=== PATIENT | male | born 1955 | race Caucasian/White ===

== ENCOUNTER 2019-11-11 12:49 | Observation (INO) | payer MEDICARE, SELFPAY ==
[2019-11-11 13:57] VITALS: BP 139/66; PULSE 68; RESP 18; TEMP 36.7; O2SAT 99
--- NOTE | 2019-11-11 14:07 | ADMGEN ---
This patient, Kapil Mckeon, was admitted to 2nd Floor Room 204-1. Patient/family oriented to hospital policies and general routines including ID bracelet, bed and alarms, visiting hours, pain management, procedures, bathroom and other care routines, personal items, smoking policy, room service/diet, and visiting hours. Valuables list has been completed. Information on how to activate the Rapid Response Team has been discussed. Patient/Family are encouraged to report perceived risks to care and to ask questions if they do not understand what they are told or what they should do. PATIENT PRESENT WITH DVT TO LEFT UPPER LEG CONFIRMED ON ULS AT [facility]. SENT HIM ON ELIQUIS PO, BUT PATIENT WENT TO GET IT FILLED AND CAN'T AFFORD IT. PATIENT WENT TO DR. PHILLIP VAZ MD AND WAS SENT OVER FOR ADMISSION TO START ON WARFARIN/LOVENOX VS HEPARIN REGIME SEE ORDERS. UPPER THIGH MEASURED AT 60 CM WARM TO TOUCH AND SLIGHT FIRM TO TOUCH FROM OF RIGHT UPPER THIGH. REPORT NO PAIN AT REST. SORE IF GOES TO MOVE IT. HAS NOT BEEN FITTED FOR PROTHESIS YET. INCISION TO AMPUTATION (DONE 2018) ASYSTOMATIC OF S/SX OF INFECTION. INTIAL ASSESSMENT AND HEALTH HISTORY COMPLETED.
[2019-11-11 14:08] LABS: Basophils Absolute Auto 0.03 K/mm3 (0.00-0.10); Basophils Percent Auto 0.5 % (0.0-1.0); Eosinophils Absolute Auto 0.12 K/mm3 (0.02-0.50); Hematocrit 37.7 % (40.0-54.0); Hemoglobin 11.8 g/dL (14.0-18.0); Immature Granulocyte Absolute 0.02 K/mm3 (0.00-0.00); Immature Granulocyte Percent A 0.3 % (0.0-0.0); Lymphocytes Absolute Auto 0.72 K/mm3 (1.10-4.50); Lymphocytes Percent Auto 11.7 % (18.0-42.0); Mean Corpuscular HGB Conc 31.3 g/dL (32.0-36.0); Mean Corpuscular Hemoglobin 25.8 pg (27.0-31.0); Mean Corpuscular Volume 82.5 fL (78.0-102.0); Mean Platelet Volume 9.5 fl (8.7-11.0); Monocytes Absolute Auto 0.54 K/mm3 (0.10-0.90); Monocytes Percent Auto 8.8 % (2.0-11.0); Neutrophils Absolute Auto 4.7 K/mm3 (1.7-7.2); Neutrophils Percent Auto 76.7 % (50.0-70.0); Nucleated Red Blood Cells Absolute Auto 0.02 K/mm3 (0.00-0.00); Nucleated Red Blood Cells Perc 0.3 % (0-0.0); Platelet Count Result 166 K/mm3 (150-420); Red Blood Count 4.57 M/mm3 (4.70-6.10); Red Cell Distribution Width 15.7 % (11.6-14.4); White Blood Count 6.1 K/mm3 (4.8-10.8)
--- NOTE | 2019-11-11 14:18 | PM.IMHP ---
H&P: HPI History of Present Illness Chief complaint: Blood clots <Afsaneh Phillip, [employer] PROJECT MANAGER - Last Filed: 11/11/19 16:09> Narrative: Kapil Mckeon is a 64 year old male admitted for anticoagulation therapy due to multiple DVTs status post amputation reconstruction or revision surgery at [facility] in the last 2 months. Kapil was recently discharged from [facility] after having been there for more than 40 days getting therapy status post revision of his amputation. when the patient was discharged from [facility], he was complaining of soreness tenderness to his right thigh as well as a feeling of fullness and tightness to his right thigh. Dr. Hammond is his primary care doctor. When Kapil had a venous ultrasound done at [facility] ED yesterday with a right swollen upper leg, they found multiple DVTs and he was prescribed Eliquis at ED discharge. The Doppler confirmed acute thrombosis of the right common femoral and superficial femoral veins as well as superficial thrombophlebitis of the greater saphenous vein. Upon checking at the pharmacy he discovered that Eliquis was 100s of dollars and he could not afford it. So he contacted Dr. Hammond, who stated that he would have to be admitted for a bridge of anticoagulation therapy to Coumadin dosing with a therapeutic INR. Kapil is a direct admit today. He has been started on Lovenox as a bridge to Coumadin anticoagulation with a goal of 2.0-3.0 INR. Orders have been placed to renal dose the Lovenox, Has he has known chronic renal failure stage III. He also has history of severe diabetes, noncompliance, obesity, and difficult medication management due to limited income. His stump revision is healing well to his right leg. His surgeon is Dr. Davila. Kapil has an IVC filter that has been in place for approximately 6 years and remains in place per patient report. His current labs are stable, INR is 1.1, H&H is 11.8 and 37.7, platelets 166, creatinine 2.11, liver function tests are within normal levels. His vital signs are stable, he is on room air with 99% saturation. He is comfortable and resting in his room. His last A1c is 9.6 from June 2019. He is on glipizide at home and has a history of diarrhea with metformin. He has been started on low-dose sliding scale insulin with a.c. HS glucose checks, as well as continued his glipizide. <Afsaneh Phillip NP - Last Filed: 11/11/19 16:09> [facility] Past Medical History Medical History: Medical History (Updated 11/11/19 @ 16:04 by Afsaneh Phillip NP) Acute renal failure Acute renal failure Amputation of right lower extremity below knee Amputation stump complication Amputation stump infection Below knee amputation Chronic renal failure, stage 3 (moderate) History of deviated nasal septum Hypertension Nephropathy Noncompliance Osteomyelitis Type 2 diabetes mellitus <Afsaneh Phillip NP - Last Filed: 11/11/19 16:09> Surgical History Surgical History: Surgical History (Updated 11/11/19 @ 15:35 by Afsaneh Phillip NP) H/O sinus surgery History of tonsillectomy and adenoidectomy S/P debridement Status post left foot surgery Status post right foot surgery <Afsaneh Phillip NP - Last Filed: 11/11/19 16:09> Family History Family History: Family History (Updated 11/11/19 @ 15:41 by Afsaneh Phillip NP) Mother Heart & renal disease, hypertensive, with heart failure Father No problems noted. <Afsaneh Phillip NP - Last Filed: 11/11/19 16:09> Social History Social History: Social History Smoking status: Never smoker Second hand tobacco smoke exposure: No Alcohol intake: never Substance use: never Substance use type: does not use Gender identity (if verbalized by the patient): Male Spiritual care concerns: No Agree to blood products: Yes <Afsaneh Phillip NP - Last Filed
[2019-11-11 14:21] LABS: Alanine Aminotransferase 20 U/L (16-63); Albumin Level 3.5 g/dL (3.4-5.0); Alkaline Phosphatase 99 U/L (46-116); Anion Gap 15.2 mmol/L (7-16); Aspartate Amino Transferase 21 U/L (15-37); Bilirubin,Total 0.8 mg/dL (0.00-1.00); Blood Urea Nitrogen 23 mg/dL (7-18); Calcium 8.6 mg/dL (8.5-10.1); Carbon Dioxide 27 mmol/L (21-32); Chloride 101 mmol/L (98-108); Estimated CRCL calculation 64 ml/min; Estimated Glomerular Filt Rate 32; Glucose 227 mg/dL (70-99); Osmolality Calculated 298 mOsm/kg (285-295); Potassium 4.2 mmol/L (3.5-5.1); Sodium 139 mmol/L (136-145); Total Protein 7.2 g/dL (6.4-8.2)
[2019-11-11 14:23] LABS: INR 1.1; Prothrombin Time 11.1 Seconds (9.64-11.0)
--- NOTE | 2019-11-11 16:01 | PC.NURSE ---
SN notified [facility] of lab results for Lovenox dosing @ 15:32.
[2019-11-11] MEDS: ENOXAPARIN 40 MG/0.4 ML SYRINGE SUB-Q (16:57)
[2019-11-11] MEDS: WARFARIN (*PBKC) 5 MG TABLET PO (16:58)
[2019-11-11] MEDS: carvediloL 12.5 MG TABLET PO (16:58)
[2019-11-11 17:07] LABS: Glucose Point of Care 126 (65-105)
--- NOTE | 2019-11-11 17:15 | PM.EVENT ---
Event Note Event Note Event Note: For this patient encounter, I reviewed the CUTTING MACHINE TENDER DECORATIVE or PA documentation, treatment plan, and medical decision making; and I had [id number] time with this patient. I discussed case with Dr. Hammond and the Gisele Sandra N.P. Pt. was examined by me. Right anterior thigh is not swollen or red. I agree with documentation, treatment plan and medical decision making.
--- NOTE | 2019-11-11 20:00 | PC.NURSE ---
Patient sitting in chair watching tv. No complaints of bleeding or bruising and none noted. Denies pain/complaints/needs @ this time. No distress noted. Call light in reach.
--- NOTE | 2019-11-11 21:03 | PC.NURSE ---
Patient still sitting in chair watching tv. Denies s/sx of bleeding/bruising and none noted. Call light in reach.
--- NOTE | 2019-11-11 21:25 | PC.NURSE ---
Patient lying in bed watching tv. Respirations even and unlabored. Patient denies pain/complaints/needs @ this time. No s/sx of bleeding complained of or noted. AUBREE chowdary and SCD applied to E. Blood [id number]. No distress noted. Call light in reach.
[2019-11-11 21:27] LABS: Glucose Point of Care 170 (65-105)
--- NOTE | 2019-11-11 22:05 | PC.NURSE ---
Patient lying in bed watching tv. Denies pain/complaints/needs @ this time. No s/sx of bleeding/bruising. No distress noted. Call light in reach.
--- NOTE | 2019-11-11 23:10 | PC.NURSE ---
Patient appears to be sleeping by the rise and fall of his chest. Respirations even and unlabored. No s/sx of bleeding/bruising noted. No distress noted. Call light in reach.
[2019-11-12] VITALS: BP 118/65; PULSE 72; RESP 16; TEMP 36.4; O2SAT 97
--- NOTE | 2019-11-12 00:05 | PC.NURSE ---
Patient awakened easily for VS. Patient denies pain/complaints/needs @ this time. No s/sx of bleeding/bruising noted. Respirations even and unlabored. No distress noted. Call light in reach.
--- NOTE | 2019-11-12 02:05 | PC.NURSE ---
atient appears to be sleeping by the rise and fall of his chest. Respirations even and unlabored. No s/sx of bleeding/bruising noted. No distress noted. Call light in reach.
[2019-11-12 05:34] LABS: Estimated Glomerular Filt Rate 37
[2019-11-12 05:38] LABS: Estimated CRCL calculation 74 ml/min
[2019-11-12 05:44] LABS: Prothrombin Time 10.8 Seconds (9.64-11.0)
--- NOTE | 2019-11-12 07:30 | PC.NURSE ---
INR 1.0. Lovenox will be given at 0800
[2019-11-12 08:00] VITALS: BP 149/82; PULSE 75; RESP 20; TEMP 36.2; O2SAT 97
--- NOTE | 2019-11-12 08:30 | PC.NURSE ---
Lovenox given. Coumadin will be given this evening.
[2019-11-12 08:46] VITALS: PULSE 75
[2019-11-12] MEDS: carvediloL 12.5 MG TABLET PO (08:46)
[2019-11-12] MEDS: ENOXAPARIN 40 MG/0.4 ML SYRINGE SUB-Q (08:46)
[2019-11-12] MEDS: glipiZIDE 5 MG TABLET 10 MG PO (08:46)
--- NOTE | 2019-11-12 10:30 | PC.NURSE ---
Lovenox given. Coumadin to be given this evening.
[2019-11-12 11:48] LABS: Glucose Point of Care 115 (65-105)
[2019-11-12 11:48] LABS: Glucose Point of Care 175 (65-105)
[2019-11-12 14:19] LABS: Estimated CRCL calculation 71 ml/min; Estimated Glomerular Filt Rate 35
--- NOTE | 2019-11-12 15:06 | PM.DS ---
DS: Diagnosis Admitting Diagnosis Admitting Diagnosis: Unspecified complications of amputation stump Discharge Diagnosis (1) BKA stump complication: Onset Date: 11/10/19 Code(s): T87.9 - Unspecified complications of amputation stump Status: Acute Assessment and Plan: BKA stump does not have any obvious signs and symptoms of infection patient is using knee wheeled walker with that right stump so that does cause daily use/trauma. treating DVT with anticoagulation (2) DVT (deep venous thrombosis): Onset Date: ~11/10/19 Code(s): I82.409 - Acute embolism and thrombosis of unspecified deep veins of unspecified lower extremity Status: Acute Assessment and Plan: stable no obvious signs and symptoms of PE at risk for DVTs due to recent and prolonged immobility after surgery and with BKA continue renal dose Lovenox for 4 days with warfarin and daily INR and follow-up with PCP the earlier part of next week (3) Thrombophlebitis of saphenous vein: Onset Date: ~11/10/19 Code(s): I80.00 - Phlebitis and thrombophlebitis of superficial vessels of unspecified lower extremity Status: Acute Assessment and Plan: stable this day of discharge Treating with renal dose Lovenox and bridging therapy to Coumadin with goal INR 2-3 Treat pain with warm compresses or ice PRN for comfort treat pain with Tylenol elevate PRN WBC is currently 6.1 with no fevers noted. (4) CKD (chronic kidney disease): Onset Date: Unknown Code(s): N18.9 - Chronic kidney disease, unspecified Status: Acute Assessment and Plan: stable known to have CKD stage 3, with periodic episodes of Acute Renal Failure. Creatinine today 1.95 has improved avoid nephrotoxic medications DS: Summary Hospital Course Hospital Course: patient's H&P from 03/11 Kapil Mckeon is a 64 year old male admitted for anticoagulation therapy due to multiple DVTs status post amputation reconstruction or revision surgery at [facility] in the last 2 months. Kapil was [facility] after having been there for more than 40 days getting therapy status post revision of his amputation. when the patient was discharged from [facility], he was complaining of soreness tenderness to his right thigh as well as a feeling of fullness and tightness to his right thigh. Dr. Hammond is his primary care doctor. When Kapil had a venous ultrasound done at [facility] ED yesterday with a right swollen upper leg, they found multiple DVTs and he was prescribed Eliquis at ED discharge. The Doppler confirmed acute thrombosis of the right common femoral and superficial femoral veins as well as superficial thrombophlebitis of the greater saphenous vein. Upon checking at the pharmacy he discovered that Eliquis was 100s of dollars and he could not afford it. So he contacted Dr. Hammond, who stated that he would have to be admitted for a bridge of anticoagulation therapy to Coumadin dosing with a therapeutic INR. Kapil is a direct admit today. He has been started on Lovenox as a bridge to Coumadin anticoagulation with a goal of 2.0-3.0 INR. Orders have been placed to renal dose the Lovenox, Has he has known chronic renal failure stage III. He also has history of severe diabetes, noncompliance, obesity, and difficult medication management due to limited income. His stump revision is healing well to his right leg. His surgeon is Dr. Davila. Kapil has an IVC filter that has been in place for approximately 6 years and remains in place per patient report. His current labs are stable, INR is 1.1, H&H is 11.8 and 37.7, platelets 166, creatinine 2.11, liver function tests are within normal levels. His vital signs are stable, he is on room air with 99% saturation. He is comfortable and resting in his room. His last A1c is 9.6 from June 2019. He is on glipizide
== END 2019-11-12 16:30 | disposition home or self-care (01) ==
PROVIDERS: Nurse Practitioner; Admitting Provider Family Medicine; PCP Internal Medicine; Visit Provider Family Medicine
DX: I82.411 Acute embolism and thrombosis of right femoral vein (principal); I12.9 Hypertensive chronic kidney disease with stage 1 through stage 4 chronic kidney disease, or unspecified chronic kidney disease; N18.3 Chronic kidney disease, stage 3 (moderate); E11.22 Type 2 diabetes mellitus with diabetic chronic kidney disease; Z89.511 Acquired absence of right leg below knee
CPT/HCPCS: 36415; 80053; 82565; 85025; 85610; 96372; A9270; G0378; G0379; J1650

== ENCOUNTER 2019-11-13 13:16 | Outpatient (CLI) | payer MEDICARE, SELFPAY ==
[2019-11-13 13:39] LABS: Prothrombin Time 10.6 Seconds (9.64-11.0)
== END 2019-11-13 13:17 | disposition home or self-care (01) ==
LOC: CHSLAB 13:18
PROVIDERS: PCP Internal Medicine; Visit Provider Nurse Practitioner
DX: I82.409 Acute embolism and thrombosis of unspecified deep veins of unspecified lower extremity (principal)
CPT/HCPCS: 36415; 85610

== ENCOUNTER 2019-11-14 10:50 | Outpatient (CLI) | payer MEDICARE, SELFPAY ==
[2019-11-14 11:12] LABS: Prothrombin Time 10.7 Seconds (9.64-11.0)
== END 2019-11-14 10:51 | disposition home or self-care (01) ==
LOC: CHSLAB 10:52
PROVIDERS: PCP Internal Medicine; Visit Provider Nurse Practitioner
DX: I82.409 Acute embolism and thrombosis of unspecified deep veins of unspecified lower extremity (principal)
CPT/HCPCS: 36415; 85610

== ENCOUNTER 2019-11-15 15:24 | Outpatient (CLI) | payer MEDICARE, SELFPAY ==
[2019-11-15 16:00] LABS: INR 1.1; Prothrombin Time 11.5 Seconds (9.64-11.0)
== END 2019-11-15 15:25 | disposition home or self-care (01) ==
PROVIDERS: PCP Internal Medicine; Visit Provider Nurse Practitioner
DX: I82.409 Acute embolism and thrombosis of unspecified deep veins of unspecified lower extremity (principal)
CPT/HCPCS: 36415; 85610

== ENCOUNTER 2019-11-16 13:39 | Outpatient (CLI) | payer MEDICARE, SELFPAY ==
[2019-11-16 14:04] LABS: INR 1.1; Prothrombin Time 11.7 Seconds (9.64-11.0)
== END 2019-11-16 13:40 | disposition home or self-care (01) ==
LOC: CHSLAB 13:41
PROVIDERS: PCP Internal Medicine; Visit Provider Nurse Practitioner
DX: I82.409 Acute embolism and thrombosis of unspecified deep veins of unspecified lower extremity (principal)
CPT/HCPCS: 36415; 85610

== ENCOUNTER 2019-11-17 13:49 | Outpatient (CLI) | payer MEDICARE, SELFPAY ==
[2019-11-17 14:16] LABS: INR 1.1; Prothrombin Time 11.8 Seconds (9.64-11.0)
[2019-11-17] MEDS: ENOXAPARIN 120 MG/0.8 ML SYRINGE SUB-Q (16:37)
--- NOTE | 2019-11-18 14:09 | PC.NURSE ---
Discharge call back [phone] Patient coming to outpatient services daily for anticoagulation. He states all discharge instructions were understood both verbilized and in writting.
== END 2019-11-17 13:50 | disposition home or self-care (01) ==
PROVIDERS: PCP Internal Medicine; Visit Provider Nurse Practitioner
DX: I82.401 Acute embolism and thrombosis of unspecified deep veins of right lower extremity (principal)
CPT/HCPCS: 36415; 85610; 96372; J1650

== ENCOUNTER 2019-11-18 14:28 | Outpatient (CLI) | payer MEDICARE, SELFPAY ==
[2019-11-18 14:50] LABS: Hemoglobin A1C 7.4 % (<5.7)
[2019-11-18 14:54] LABS: INR 1.3; Prothrombin Time 13.4 Seconds (9.64-11.0)
[2019-11-18] MEDS: ENOXAPARIN 120 MG/0.8 ML SYRINGE SUB-Q (14:59)
== END 2019-11-18 14:29 | disposition home or self-care (01) ==
PROVIDERS: PCP Internal Medicine; Visit Provider Nurse Practitioner
DX: Z79.01 Long term (current) use of anticoagulants (principal); E11.9 Type 2 diabetes mellitus without complications; I82.401 Acute embolism and thrombosis of unspecified deep veins of right lower extremity
CPT/HCPCS: 36415; 83036; 85610; 96372

== ENCOUNTER 2019-11-19 14:30 | Outpatient (CLI) | payer MEDICARE, SELFPAY ==
[2019-11-19] MEDS: ENOXAPARIN 120 MG/0.8 ML SYRINGE SUB-Q (14:56)
[2019-11-19 15:05] LABS: INR 1.4; Prothrombin Time 14.3 Seconds (9.64-11.0)
== END 2019-11-19 14:31 | disposition home or self-care (01) ==
PROVIDERS: PCP Internal Medicine; Visit Provider Nurse Practitioner
DX: I82.401 Acute embolism and thrombosis of unspecified deep veins of right lower extremity (principal)
CPT/HCPCS: 36415; 85610; 96372; J1650

== ENCOUNTER 2019-11-20 14:38 | Outpatient (CLI) | payer MEDICARE, SELFPAY ==
[2019-11-20] MEDS: ENOXAPARIN 120 MG/0.8 ML SYRINGE SUB-Q (15:01)
[2019-11-20 15:48] LABS: INR 1.8; Prothrombin Time 18.1 Seconds (9.64-11.0)
== END 2019-11-20 14:39 | disposition home or self-care (01) ==
PROVIDERS: Nurse Practitioner; PCP Internal Medicine; Visit Provider Internal Medicine
DX: I82.401 Acute embolism and thrombosis of unspecified deep veins of right lower extremity (principal)
CPT/HCPCS: 36415; 85610; 96372; J1650

== ENCOUNTER 2019-11-21 12:53 | Outpatient (CLI) | payer MEDICARE, SELFPAY ==
[2019-11-21 13:29] LABS: INR 2.1; Prothrombin Time 21.4 Seconds (9.64-11.0)
[2019-11-21] MEDS: ENOXAPARIN 120 MG/0.8 ML SYRINGE SUB-Q (13:48)
== END 2019-11-21 12:54 | disposition home or self-care (01) ==
LOC: CHSLAB 12:56
PROVIDERS: Nurse Practitioner; PCP Internal Medicine; Visit Provider Internal Medicine
DX: I82.401 Acute embolism and thrombosis of unspecified deep veins of right lower extremity (principal); Z79.01 Long term (current) use of anticoagulants
CPT/HCPCS: 36415; 85610; 96372; J1650

== ENCOUNTER 2019-11-22 17:24 | Outpatient (RCR) | payer MEDICARE, SELFPAY ==
[2019-11-22 18:58] LABS: INR 2.2
== END 2020-02-20 23:59 | disposition home or self-care (01) ==
LOC: CHSLAB 17:24
PROVIDERS: PCP Internal Medicine; Visit Provider Internal Medicine
DX: Z79.01 Long term (current) use of anticoagulants (principal)
CPT/HCPCS: 36415; 85610

== ENCOUNTER 2019-11-25 10:57 | Outpatient (CLI) | payer MEDICARE, SELFPAY ==
[2019-11-25 11:30] LABS: INR 2.3; Prothrombin Time 22.8 Seconds (9.64-11.0)
== END 2019-11-25 10:58 | disposition home or self-care (01) ==
LOC: CHSLAB 10:59
PROVIDERS: PCP Internal Medicine; Visit Provider Internal Medicine
DX: Z79.01 Long term (current) use of anticoagulants (principal)
CPT/HCPCS: 36415; 85610